=== PATIENT | male | born 1960 | race Caucasian/White ===

== ENCOUNTER 2017-09-26 15:24 | Outpatient (RCR) | payer OTHER ==
[2012-04-20 16:33] VITALS: Ht 180.3 cm; Wt 90.7 kg
[~2017-09-26] VITALS: Ht 180.3 cm; Wt 90.7 kg
[~2017-09-26 15:24] MED LIST: ESOM20CA31 PO; GLY25 PO; METF-420 PO; METO-259 PO; OND4 PO; SIMV-42 PO; SITA100T9 PO
--- NOTE | 2017-09-27 15:26 | Medical Nutrition Therapy ---
Nutrition Anthropometrics Height (Inches): 71 Weight (Pounds): 200 (stated) BMI Calculated: 29.29 Patrice Nutrition Score: Patrice Nutrition Risk Score: Dietary Referral Nutrition Risk Factors: Nutrition Risk Comment: Nutrition/Food History Breakfast: 1 1/2c cereal, 2c 2% milk, banana Lunch: eats out- burger or sndwich small FF, diet pop, or chichen fried steak FF, Dinner: TV dinner or ecuadorean or eats out ([place], or Fast Food) Snacks: donuts at work, banana, cheese cracker at hs Nutritional Education Nutrition Education Topic: Diabetic Nutrition Learning Readiness: Interested Teaching Methods: Discussion, Handout, Demonstration Response to Teaching: Verbalize understanding Teaching Recipient: Patient Nutrition Counseling: Pt states has been having troubles with his diet and diabetes since his divorce. A1C has increased to 8.9. Pt states he usually eats fast food at lunchtime and TV dinner, fast food or restaurants for supper. Discussed glycemic action and high glycemic response to processed foods in particular white bread and turkmen fries pt is consuming. Discussed different options that would be healthier at his favorite restaurants. Pt agreed to keeping CHO 45-60/meal. He will have a meal size salad 1-2X/wk in place of sandwich. Try side salad in place of FF or eat a sand with a smaller bun when he wants FF. Discussed eating 1/2 meal in restaurant and add a salad. Pt has a job that he is on his feet plus he walks to work and to all restaurants. Pt was not interested in additional classes but was encouraged to attend class on living with diabetes. Pt stated he would consider it. Will call pt prior to class. Nutrition Monitoring & Eval RD Patient Assessment Time: 75 minutes Nutritional Comment: Provided 75 min MNT focusing on diabetes. Copies To Copies to: AMRIT BERMUDEZ MD, BETH Sep 26, 2017 17:08
== END 2017-10-31 ==
LOC: DIET 15:24
PROVIDERS: ATTEND Family Medicine
DX: Z71.3 Dietary counseling and surveillance (principal); E11.65 Type 2 diabetes mellitus with hyperglycemia; Z79.84 Long term (current) use of oral hypoglycemic drugs; Z68.29 Body mass index [BMI] 29.0-29.9, adult
CPT/HCPCS: 97802

== ENCOUNTER 2018-03-29 14:57 | Outpatient (RCR) | payer OTHER ==
[2012-04-20 16:33] VITALS: BMI 29.3
--- NOTE | 2018-03-29 17:13 | Medical Nutrition Therapy ---
Nutritional Education Nutrition Education Topic: Diabetic Nutrition Learning Readiness: Interested Teaching Methods: Handout, Demonstration Response to Teaching: Verbalize understanding Teaching Recipient: Patient Nutrition Counseling: Pr recieved CGM 5 day monitor insertion and instuction. Pt is scheduled for removeal 04/03. Nutrition Monitoring & Eval RD Patient Assessment Time: [address] Assessment Type: RD Education Nutritional Comment: Provided insertion of 5 day CGM monitor test. Copies To Copies to: AMRIT BERMUDEZ MD, BETH Mar 29, 2018 17:13
== END 2018-04-21 07:52 | disposition home or self-care (01) ==
LOC: DIET 14:57
PROVIDERS: ATTEND Family Medicine
DX: Z71.3 Dietary counseling and surveillance (principal); E11.65 Type 2 diabetes mellitus with hyperglycemia; E78.00 Pure hypercholesterolemia, unspecified; I10 Essential (primary) hypertension
CPT/HCPCS: 95250